=== PATIENT | female | born 1940 | race Caucasian/White ===

== ENCOUNTER 2020-06-16 07:35 | Emergency (ER) | payer MEDICARE, BC ==
[~2020-06-16] VITALS: Ht 165.1 cm; Wt 87.0 kg
[2020-06-16] MEDS ORDERED: DOXYCYCLINE 100MG CAPSULE PO STA (10:05)
[2020-06-16] MEDS ORDERED: DOXY150T5 PO (10:05)
[2020-06-16 10:18] VITALS: BP 135/62
== END 2020-06-16 10:22 | disposition home or self-care (01) ==
LOC: ER 07:36
DX: L03.116 Cellulitis of left lower limb (principal); I10 Essential (primary) hypertension; Z79.899 Other long term (current) drug therapy
CPT/HCPCS: 73630; 93971; 99284

== ENCOUNTER 2021-08-23 08:50 | Emergency (ER) | payer MEDICARE, BC ==
[~2021-08-23] VITALS: Ht 162.6 cm; Wt 84.5 kg
[2021-08-23 09:14] VITALS: BP 133/83
== END 2021-08-23 21:47 | disposition left against medical advice (07) ==
LOC: ER 08:50
DX: L03.116 Cellulitis of left lower limb (principal); Z53.21 Procedure and treatment not carried out due to patient leaving prior to being seen by health care provider